=== PATIENT | male | born 1995 | race Caucasian/White ===

== ENCOUNTER 2016-12-24 14:39 | Emergency (ER) | payer MEDICAID ==
[2016-12-24] MEDS ORDERED: Sodium Chloride 0.9% 1,000 ML IV ONE (14:58)
[2016-12-24] MEDS ORDERED: Ondansetron 4 MG/2 ML SDV IV ONE (14:58)
[2016-12-24 15:03] VITALS: BP 116/52
--- NOTE | 2016-12-24 15:53 | EDM.PDOC ---
ED HPI GI/ABDOMINAL - General Chief Complaint: Gastrointestinal Problem Stated Complaint: CHILLS, FEVER, SICK Time Seen by Provider: 12/24/16 15:40 Source of Information: Reports: Patient History Limitations: Reports: No limitations - History of Present Illness INITIAL COMMENTS - FREE TEXT/NARRATIVE: This 21 yo male patient reports to the ED with a fever, nausea/vomiting and abdominal pain. The patient reports his symptoms started this morning and have gotten worse throughout the day. Symptom Onset Date: 12/24/16 Timing/Duration: Reports: Constant Location: generalized Quality: Reports: ache, cramping Severity: moderate Associated Symptoms: Reports: fever/chills, nausea/vomiting - Related Data Allergies/ADRs: Allergies Allergy/AdvReac Type Severity Reaction Status Date / Time red dye Allergy unknown Verified 12/24/16 15:44 Home Meds: Home Meds . [No Known Home Meds] 12/24/16 [History] Past Medical History - Past Health History Medical/Surgical History: Denies Medical/Surgical History Social & Family History - Tobacco Use Smoking Status *Q: Never Smoker Second Hand Smoke Exposure: No - Alcohol Use Days Per Week of Alcohol Use: 0 - Recreational Drug Use Recreational Drug Use: No ED ROS GENERAL - Review of Systems Review Of Systems: ROS reveals no pertinent complaints other than HPI. ED EXAM, GI/ABD - Physical Exam Exam: See Below Exam Limited By: No limitations General Appearance: alert, moderate distress, thin Eyes: bilateral: normal appearance, EOMI Ears: normal external exam, normal canal, hearing grossly normal, normal TMs Nose: normal inspection, normal mucosa, no blood Throat/Mouth: Normal inspection, Normal lips, Normal teeth, Normal gums, Normal oropharynx, Normal voice, No airway compromise Head: atraumatic, normocephalic Neck: normal inspection, supple, non-tender, full range of motion Respiratory/Chest: no respiratory distress, lungs clear, normal breath sounds, no accessory muscle use, chest non-tender Cardiovascular: normal peripheral pulses, regular rate, rhythm, no edema, no gallop, no JVD, no murmur, no rub GI/Abdominal: normal bowel sounds, soft, no organomegaly, no distention, no abnormal bruit, no mass, tenderness (LLQ) (Male) Exam: Deferred Rectal (Males) Exam: Deferred Back Exam: normal inspection, full range of motion, NT Extremities: normal inspection, normal range of motion, non-tender, normal capillary refill, no pedal edema Neurological: alert, oriented, CN II-XII intact, normal cognition, normal gait, normal reflexes, no motor/sensory deficits Psychiatric: normal affect, normal mood Skin Exam: Warm, Dry, Intact, Normal color, No rash Lymphatic: no adenopathy Course - Vital Signs Last Recorded V/S: Last Vital Signs Temp 37.0 C 12/24/16 15:00 Pulse 93 12/24/16 15:00 Resp 18 12/24/16 15:00 BP 116/52 L 12/24/16 15:00 Pulse Ox 95 12/24/16 15:00 - Orders/Labs/Meds Orders: Active Orders 24 hr Category Date Time Status CULTURE STREP A CONFIRMATION [] Stat Lab 12/24/16 14:48 Results STREP SCRN A RAPID W CULT CONF [] Stat Lab 12/24/16 14:48 Results Labs: Laboratory Tests 12/24/16 12/24/16 Range/Units 16:06 16:06 WBC 9.8 (5.0-10.0) 10^3/uL RBC 5.11 (4.6-6.2) 10^6/uL Hgb 16.2 (14.0-18.0) g/dL Hct 46.0 (40.0-54.0) % MCV 90.0 (80-100) fL MCH 31.7 (27.0-34.0) pg MCHC 35.2 H (33.0-35.0) g/dL Plt Count 184 (150-450) 10^3/uL Neut % (Auto) 93.6 H (42.2-75.2) % Lymph % (Auto) 1.7 L (20.5-50.1) % [place] % (Auto) 4.5 (2-8) % Eos % (Auto) 0.1 L (1.0-3.0) % Baso % (Auto) 0.1 (0.0-1.0) % Sodium 136 (135-145) mmol/L Potassium 4.4 (3.6-5.0) mmol/L Chloride 103 (101-111) mmol/L Carbon Dioxide 29.0 (21.0-31.0) mmol/L Anion Gap 8.4 BUN 14 (7-18) mg/dL Creatinine 1.0 (0.6-1.3) mg/dL Est Cr Clr Drug Dosing 114.00 mL/min Estimated GFR (MDRD) > 60 BUN/Creatinine Ratio 14.00 Glucose 104 (74-105) mg/dL Calcium 8.2 L (8.4-10.2) mg/dl Total Bilirubin 1.3 H (0.2-1.0) mg/dL AST 25 (10-42) IU/L ALT 17 (10-60) IU/L Alkaline Phosphatase 60 (42-121) IU/L Total Protein 6.4 L (6.7-8.2) g/dl Albumin 4.1 (3.2-5.5) g/dl Globulin 2.3 Albumin/Globulin Ratio 1.78 Meds: Medications Discontinued Medications Generic Name Dose Route Start Last Admin Trade Name Freq PRN Reason Stop Dose Admin Sodium Chloride 1,000 mls @ 999 mls/hr 12/24/16 14:58 12/24/16 15:20 Normal Saline IV 12/24/16 15:58 999 mls/hr .BOLUS ONE Administration Ondansetron HCl 4 mg 12/24/16 14:58 12/24/16 15:20 Zofran IV 12/24/16 14:59 4 mg ONETIME ONE Administration Departure - Departure Time of Disposition: 16:43 Disposition: Home, Self-Care 01 Condition: fair Clinical Impression: Gastroenteritis Instructions: Viral Gastroenteritis, Adult, [id number] Forms: ED Department Discharge Care Plan Goals: The patient was advised of the examination and lab results during the visit. The patient was given a liter of IV fluid and a dose of Zofran (for nausea) while in the ED. The patient was discharged with a script for Zofran ODT (4 mg) #20 to take 1 by mouth every 6 hours as needed for nausea. If the patient has any additional symptoms or concerns, the patient should either return to the emergency department or follow-up with his primary care facility. - My Orders Last 24 Hours: My Active Orders 12/24/16 14:48 CULTURE STREP A CONFIRMATION [RM] Stat STREP SCRN A RAPID W CULT CONF [] Stat - Assessment/Plan Last 24 Hours: My Active Orders 12/24/16 14:48 CULTURE STREP A CONFIRMATION [RM] Stat STREP SCRN A RAPID W CULT CONF [] Stat
[2016-12-24 16:34] LABS: CHLORIDE,CL 103 mmol/L (101-111); SODIUM,NA 136 mmol/L (135-145)
== END 2016-12-24 17:00 | disposition home or self-care (01) ==
LOC: DL.ED 14:39
DX: K52.9 Noninfective gastroenteritis and colitis, unspecified (principal); Z91.041 Radiographic dye allergy status
CPT/HCPCS: 36415; 80053; 85025; 87081; 87430; 87804; 96361; 96374; 99284; J2405; J7030